=== PATIENT | male | born 1965 | race Hispanic/Latino ===

== ENCOUNTER 2018-04-10 17:51 | Inpatient (IN) | payer OTHER ==
--- NOTE | 2018-04-11 08:09 | History and Physical Report ---
History of Present Illness Date of examination: 04/11/18 Date of admission: 04/10/18 18:13 Chief complaint: help with alcohol detox History of present illness: Patient is 52 yo with alcohol dependence, hyperlipidemia. He presents with nausa , tremors. He is requesting help from alcohol dependence.Patient states he drinks a lot of alcohol. Several bottles of wine daily, several bottles of beer daily. last dringk was few days ago. He denies vomiting, no headache. He was evaluated and is being admitted. Past History Past Medical History: hyperlipidemia Past Surgical History: Other (Knee surgery, shoulder surgery, oral surgery for sleep apnea) Social history: single, alcohol abuse, full code. denies: smoking Family history: hypertension Medications and Allergies Allergies Allergy/AdvReac Type Severity Reaction Status Date / Time No Known Allergies Allergy Verified 04/11/18 00:32 Home Medications Medication Instructions Recorded Confirmed Last Taken Type Atorvastatin [Lipitor Tab] 40 mg PO QHS 04/10/18 04/11/18 04/10/18 23:00 History 40 mg Esomeprazole Magnesium [NexIUM] 20 mg PO QDAY 04/10/18 04/11/18 04/10/18 23:00 History Fenofibrate [Tricor] 145 tab PO DAILY 04/10/18 04/11/18 04/10/18 23:00 History No Known Home Medications [No 04/10/18 04/11/18 Unknown History Reported Home Medications] Sertraline HCl [Zoloft] 50 mg PO DAILY 04/10/18 04/11/18 04/10/18 23:00 History 50 mg traZODone [Desyrel] 100 mg PO QHS 04/10/18 04/11/18 04/10/18 23:00 History Review of Systems All systems: negative (No cough, no fever, o abdominal pain. All other systems reviewed and are negative) Exam - Physical Exam Narrative exam: GEN: Not in acute distress,sitting up in bed, obese HEENT: Normocephalic, atraumatic, Neck: supple, No JVD Lungs: Clear to auscultation bilaterally, no crackles Heart:S1 and S2 reg, no murmurs, rubs or gallop, tender, Abd:soft, tender, non distended,Normal bowel sounds Ext: No edema, no clubbing, no cyanosis Neuro: Awake, alert, oriented x 3, no focal signs - Constitutional Vitals: Temp Pulse Resp BP Pulse Ox 98.0 F 109 H 18 149/96 95 04/11/18 04:00 04/11/18 04:00 04/11/18 04:00 04/11/18 04:00 04/11/18 04:00 - EENT Eyes: Present: exopthalmos Results - Labs CBC & Chem 7: 04/11/18 08:21 04/11/18 08:21 Assessment and Plan Alcohol dependence. Admit to medical stabilization unit. Alcohol dependence protocol Ativan taper, Robaxin Zofran prn Will place on [facility] protocol for withdrawal Hyperlipidemia. Resume lipitor, Tricor DVT prophylaxis. Heparin subcut Full code status
[2018-04-11] MEDS ORDERED: SENOKOT PO PRN (08:13)
[2018-04-11] MEDS ORDERED: ALUM-MAG HYDROX-SIMETH 200-200-20MG/5ML PO PRN (08:13)
[2018-04-11] MEDS ORDERED: ATIVAN IV PRN ×2 (08:14)
[2018-04-11 08:43] LABS: Hematocrit 41.5 % (35.5-45.6); Hemoglobin 14.3 gm/dl (11.8-15.2); Mean Corpuscular HGB Conc 34 % (32-34); Mean Corpuscular Hemoglobin 32 pg (28-32); Mean Corpuscular Volume 92 fl (84-94); Platelet Count 141 K/mm3 (140-440); Red Blood Count 4.51 M/mm3 (3.65-5.03); Red Cell Distribution Width 13.7 % (13.2-15.2)
[2018-04-11 09:10] LABS: Alanine Aminotransferase 69 units/L (7-56); Albumin 4.8 g/dL (3.9-5); BUN/Creatinine Ratio 12; Blood Urea Nitrogen 13 mg/dL (9-20); Hemolysis Index 12; Lipase 83 units/L (13-60)
[2018-04-11 09:15] LABS: INR 0.95 (0.87-1.13)
[2018-04-11] MEDS: PROTONIX PO SCH (09:32)
[2018-04-11] MEDS: NORCO 5/325 PO PRN ×2 (09:32→21:09)
[2018-04-11] MEDS: VITAMIN B-1 PO SCH (09:33)
[2018-04-11] MEDS: ZOLOFT PO SCH (09:33)
[2018-04-11] MEDS: TRICOR PO SCH (09:33)
[2018-04-11] MEDS: FOLVITE PO SCH (09:33)
[2018-04-11] MEDS: THERAGRAN Tab PO SCH (09:34)
[2018-04-11] MEDS ORDERED: SERTRALINE HCL PO SCH (10:00)
[2018-04-11] MEDS ORDERED: NEXIUM 20 MG PO SCH (10:00)
[2018-04-11] MEDS: ATIVAN IV PRN ×2 (10:15→22:59)
--- NOTE | 2018-04-11 11:22 | XRay Report ---
FINAL REPORT EXAM: XR CHEST 1V AP HISTORY: pain left lower chest wall COMPARISON: None. TECHNIQUE: Single portable view of the chest FINDINGS: The cardiomediastinal silhouette is normal in appearance. The lungs are clear without focal consolidation. There is no pleural effusion or pneumothorax. There is no acute soft tissue or osseous abnormality. IMPRESSION: No acute cardiopulmonary disease.
[2018-04-11] MEDS ORDERED: ATORVASTATIN PO SCH (18:00)
[2018-04-11] MEDS ORDERED: TRAZODONE PO SCH (22:00)
[2018-04-11] MEDS: DESYREL PO SCH (22:54)
[2018-04-12] MEDS ORDERED: VISTARIL PO PRN (08:10)
[2018-04-12] MEDS ORDERED: ROBAXIN PO PRN (08:10)
[2018-04-12] MEDS ORDERED: BENTYL PO PRN (08:10)
[2018-04-12] MEDS: THERAGRAN Tab PO SCH (09:26)
[2018-04-12] MEDS: FOLVITE PO SCH (09:26)
[2018-04-12] MEDS: VITAMIN B-1 PO SCH (09:26)
[2018-04-12] MEDS: ZOLOFT PO SCH (09:27)
[2018-04-12] MEDS: PROTONIX PO SCH (09:27)
[2018-04-12] MEDS: ATIVAN PO SCH ×5 (09:28→21:32)
[2018-04-12] MEDS: TRICOR PO SCH (09:32)
[2018-04-12] MEDS: ZOFRAN IV PRN (09:32)
--- NOTE | 2018-04-12 12:20 | Progress Note ---
Assessment and Plan Assessment and plan: Alcohol dependence. Continue Alcohol dependence protocol Ativan taper, Robaxin Zofran prn Will place on [facility] protocol for withdrawal Hyperlipidemia. Continue lipitor, Tricor DVT prophylaxis. Heparin subcut Full code status History Interval history: Feels better, Anxiety Hospitalist Physical - Physical exam Narrative exam: GEN: Not in acute distress,sitting up in bed, obese HEENT: Normocephalic, atraumatic, Neck: supple, No JVD Lungs: Clear to auscultation bilaterally, no crackles Heart:S1 and S2 reg, no murmurs, rubs or gallop, tender, Abd:soft, tender, non distended,Normal bowel sounds Ext: No edema, no clubbing, no cyanosis Neuro: Awake, alert, oriented x 3, no focal signs - Constitutional Vitals: Temp Pulse Resp BP Pulse Ox 97.5 F L 114 H 18 168/103 96 04/12/18 11:42 04/12/18 11:42 04/12/18 11:42 04/12/18 11:42 04/12/18 11:42 Results - Labs CBC & Chem 7: 04/11/18 08:21 04/11/18 08:21 Labs: Laboratory Last Values WBC 4.3 K/mm3 (4.5-11.0) L 04/11/18 08:21 RBC 4.51 M/mm3 (3.65-5.03) 04/11/18 08:21 Hgb 14.3 gm/dl (11.8-15.2) 04/11/18 08:21 Hct 41.5 % (35.5-45.6) 04/11/18 08:21 MCV 92 fl (84-94) 04/11/18 08:21 MCH 32 pg (28-32) 04/11/18 08:21 MCHC 34 % (32-34) 04/11/18 08:21 RDW 13.7 % (13.2-15.2) 04/11/18 08:21 Plt Count 141 K/mm3 (140-440) 04/11/18 08:21 PT 13.1 Sec. (12.2-14.9) 04/11/18 08:43 INR 0.95 (0.87-1.13) 04/11/18 08:43 Sodium 136 mmol/L (137-145) L 04/11/18 08:21 Potassium 3.6 mmol/L (3.6-5.0) 04/11/18 08:21 Chloride 94.9 mmol/L (98-107) L 04/11/18 08:21 Carbon Dioxide 24 mmol/L (22-30) 04/11/18 08:21 Anion Gap 21 mmol/L 04/11/18 08:21 BUN 13 mg/dL (9-20) 04/11/18 08:21 Creatinine 1.1 mg/dL (0.8-1.5) 04/11/18 08:21 Estimated GFR > 60 ml/min 04/11/18 08:21 BUN/Creatinine Ratio 12 % 04/11/18 08:21 Glucose 138 mg/dL (75-100) H 04/11/18 08:21 Calcium 9.0 mg/dL (8.4-10.2) 04/11/18 08:21 Total Bilirubin 1.00 mg/dL (0.1-1.2) 04/11/18 08:21 AST 100 units/L (5-40) H 04/11/18 08:21 ALT 69 units/L (7-56) H 04/11/18 08:21 Alkaline Phosphatase 38 units/L (35-129) 04/11/18 08:21 Total Protein 7.3 g/dL (6.3-8.2) 04/11/18 08:21 Albumin 4.8 g/dL (3.9-5) 04/11/18 08:21 Albumin/Globulin Ratio 1.9 % 04/11/18 08:21 Lipase 83 units/L (13-60) H 04/11/18 08:21
[2018-04-12] MEDS ORDERED: TYLENOL PO PRN (13:41)
[2018-04-12] MEDS: DESYREL PO SCH (21:31)
[2018-04-13] MEDS: ATIVAN PO SCH ×4 (02:18→17:35)
[2018-04-13] MEDS: HEPARIN SUB-Q SCH ×2 (06:37→13:52)
[2018-04-13] MEDS: ZOLOFT PO SCH (09:15)
[2018-04-13] MEDS: TRICOR PO SCH (09:15)
[2018-04-13] MEDS: THERAGRAN Tab PO SCH (09:16)
[2018-04-13] MEDS: VITAMIN B-1 PO SCH (09:16)
[2018-04-13] MEDS: PROTONIX PO SCH (09:16)
[2018-04-13] MEDS: FOLVITE PO SCH (09:16)
[2018-04-13] MEDS: ZOFRAN IV PRN ×2 (11:05→17:34)
--- NOTE | 2018-04-13 13:39 | Progress Note ---
History Interval history: Alcohol dependence. Continue Alcohol dependence protocol Ativan taper, Robaxin Zofran prn Will place on [facility] protocol for withdrawal Hyperlipidemia. Continue lipitor, Tricor DVT prophylaxis. Heparin subcut Hospitalist Physical - Constitutional Vitals: Temp Pulse Resp BP Pulse Ox 98.6 F 94 H 18 151/95 96 04/13/18 11:53 04/13/18 11:53 04/13/18 11:53 04/13/18 11:53 04/13/18 11:53 Results - Labs CBC & Chem 7: 04/11/18 08:21 04/11/18 08:21 Labs: Laboratory Last Values WBC 4.3 K/mm3 (4.5-11.0) L 04/11/18 08:21 RBC 4.51 M/mm3 (3.65-5.03) 04/11/18 08:21 Hgb 14.3 gm/dl (11.8-15.2) 04/11/18 08:21 Hct 41.5 % (35.5-45.6) 04/11/18 08:21 MCV 92 fl (84-94) 04/11/18 08:21 MCH 32 pg (28-32) 04/11/18 08:21 MCHC 34 % (32-34) 04/11/18 08:21 RDW 13.7 % (13.2-15.2) 04/11/18 08:21 Plt Count 141 K/mm3 (140-440) 04/11/18 08:21 PT 13.1 Sec. (12.2-14.9) 04/11/18 08:43 INR 0.95 (0.87-1.13) 04/11/18 08:43 Sodium 136 mmol/L (137-145) L 04/11/18 08:21 Potassium 3.6 mmol/L (3.6-5.0) 04/11/18 08:21 Chloride 94.9 mmol/L (98-107) L 04/11/18 08:21 Carbon Dioxide 24 mmol/L (22-30) 04/11/18 08:21 Anion Gap 21 mmol/L 04/11/18 08:21 BUN 13 mg/dL (9-20) 04/11/18 08:21 Creatinine 1.1 mg/dL (0.8-1.5) 04/11/18 08:21 Estimated GFR > 60 ml/min 04/11/18 08:21 BUN/Creatinine Ratio 12 % 04/11/18 08:21 Glucose 138 mg/dL (75-100) H 04/11/18 08:21 Calcium 9.0 mg/dL (8.4-10.2) 04/11/18 08:21 Total Bilirubin 1.00 mg/dL (0.1-1.2) 04/11/18 08:21 AST 100 units/L (5-40) H 04/11/18 08:21 ALT 69 units/L (7-56) H 04/11/18 08:21 Alkaline Phosphatase 38 units/L (35-129) 04/11/18 08:21 Total Protein 7.3 g/dL (6.3-8.2) 04/11/18 08:21 Albumin 4.8 g/dL (3.9-5) 04/11/18 08:21 Albumin/Globulin Ratio 1.9 % 04/11/18 08:21 Lipase 83 units/L (13-60) H 04/11/18 08:21
[2018-04-13] MEDS: NORCO 5/325 PO PRN (13:53)
[2018-04-14] MEDS: HEPARIN SUB-Q SCH ×2 (00:19→06:08)
[2018-04-14] MEDS: DESYREL PO SCH (00:19)
[2018-04-14] MEDS: ATIVAN PO SCH ×2 (00:19→06:08)
[2018-04-14 07:43] VITALS: BP 143/92
[2018-04-14] MEDS ORDERED: ATIVAN PO SCH (14:00)
--- NOTE | 2018-04-14 15:11 | Discharge Summary ---
Providers - Providers Date of Admission: 04/10/18 18:13 Date of discharge: 04/14/18 Attending physician: HERON REY Primary care physician: HARLEEN ESCOBAR Hospitalization Reason for admission: help with alcohol detox Condition: Good Hospital course: Patient is 52 yo with alcohol dependence, hyperlipidemia. He presented with nausea, tremors. He requested help from alcohol dependence. Patient stated he drinks a lot of alcohol. Several bottles of wine daily, several bottles of beer daily. 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 He denied vomiting, no headache. He was evaluated and was admitted to [facility]. The patient underwent appropriate protocols and now will be discharged to [facility] for continued treatment of alcohol abuse concern. Patient is discharged in good condition. Dedicated discharged on 32 minutes. Disposition: [id number]/[place]-[id number] ANOTHER TYPE [facility]THC[facility] Time spent for discharge: 32 - Discharge Diagnoses (1) Alcohol abuse Status: Acute (2) Alcohol withdrawal Status: Acute Core Measure Documentation - Palliative Care Palliative Care/ Comfort Measures: Not Applicable - Core Measures Any of the following diagnoses?: none Exam - Constitutional Vitals: Temp Pulse Resp BP Pulse Ox 97.5 F L 98 H 18 143/92 93 04/14/18 07:39 04/14/18 07:39 04/14/18 07:39 04/14/18 07:39 04/14/18 07:39 General appearance: Present: no acute distress, well-nourished - EENT Eyes: Present: PERRL ENT: hearing intact, clear oral mucosa - Neck Neck: Present: supple, normal ROM - Respiratory Respiratory effort: normal Respiratory: bilateral: CTA - Cardiovascular Heart Sounds: Present: S1 & S2. Absent: rub, click - Extremities Extremities: pulses symmetrical, No edema Peripheral Pulses: within normal limits - Abdominal General gastrointestinal: Present: soft, non-tender, non-distended, normal bowel sounds Male genitourinary: Present: normal - Integumentary Integumentary: Present: clear, warm, dry - Musculoskeletal Musculoskeletal: gait normal, strength equal bilaterally - Psychiatric Psychiatric: appropriate mood/affect, intact judgment & insight - Neurologic Neurologic: CNII-XII intact, moves all extremities Plan Activity: no restrictions Weight Bearing Status: Full Weight Bearing Follow up with: HARLEEN ESCOBAR MD [Primary Care Provider] - 7 Days
== END 2018-04-14 08:10 | disposition short-term general hospital (02) | DRG 897 ==
LOC: 3A 17:51 → UNDOADMIN 17:51 → MSU 18:13
PROVIDERS: ADMIT Internal Medicine; ATTEND Hospitalist
DX: F10.239 Alcohol dependence with withdrawal, unspecified (principal); Y90.0 Blood alcohol level of less than 20 mg/100 ml; E78.5 Hyperlipidemia, unspecified; Z82.49 Family history of ischemic heart disease and other diseases of the circulatory system; Z79.899 Other long term (current) drug therapy
CPT/HCPCS: 36415; 71045; 80053; 83690; 85027; 85610; A9270-GY; J1644; J2060; J2405